=== PATIENT | female | born 1970 | race Asian ===

== ENCOUNTER 2020-09-05 10:24 | Emergency (ER) | payer BC ==
[~2020-09-05] VITALS: Ht 152.4 cm; Wt 47.6 kg
[~2020-09-05 10:24] MED LIST: MECLIZINE HCL25 MG ORAL; ZOFRAN4 M1 ORAL
[2020-09-05 10:45] VITALS: BP 139/88
--- NOTE | 2020-09-05 10:56 | NUR ---
ED Nurse Note: RN unable to obtain EKG earlier due to too many artifacts from patient's persistent cough. EKG obtained at [address] Green.
[2020-09-05] MEDS ORDERED: Morphine Sulfate 4mg/ml Inj (IV USE ONLY) IVP ONE (11:15)
[2020-09-05] MEDS ORDERED: Omnipaque-300 100ml vial INJ PRN (11:15)
--- NOTE | 2020-09-05 11:19 | NUR ---
ED Nurse Note: Patient walked in to ER from home c/o persistent painful cough, white phlegm with CP/abdominal pain, pointing LLQ x 3 weeks. Patient presented calm, AAO x4, VSS at this time. Per patient, she had recent hospitalization due to sepsis from UTI and pending drainage procedure due to ruptured cysts in kidneys.
[2020-09-05 13:13] LABS: APPEARANCE,URINE SLIGHTLY CLOUDY; BASOPHILS % (AUTO) 0.8 % (0.0-2.0); BILIRUBIN, URINE NEGATIVE (NEGATIVE); COLOR,URINE PALE YELLOW; EOSINOPHILS % (AUTO) 1.8 % (0.0-3.0); GLUCOSE, URINE (UA) NEGATIVE (NEGATIVE); HEMATOCRIT 35.2 % (37.0-47.0); KETONES,URINE NEGATIVE (NEGATIVE); LEUKOCYTE ESTERASE ,URINE 1+ (NEGATIVE); LYMPHOCYTES % (AUTO) 12.5 % (20.0-45.0); MEAN CORPUSCULAR VOLUME 97 FL (80-99); MONOCYTES % (AUTO) 9.6 % (1.0-10.0); NEUTROPHILS % (AUTO) 75.4 % (45.0-75.0); NITRITE,URINE NEGATIVE (NEGATIVE); PH,URINE 7 (4.5-8.0); PLATELET COUNT 339 K/UL (150-450); PROTEIN,URINE NEGATIVE (NEGATIVE); RED BLOOD COUNT 3.64 M/UL (4.20-5.40); RED CELL DISTRIBUTION WIDTH 12.9 % (11.6-14.8); UROBILINOGEN,URINE NORMAL MG/DL (0.0-1.0)
[2020-09-05 13:24] LABS: ANION GAP 7 mmol/L (5-15); BLOOD UREA NITROGEN 13 mg/dL (7-18); CALCIUM 8.9 MG/DL (8.5-10.1); CARBON DIOXIDE 28 MMOL/L (21-32); CHLORIDE 103 MMOL/L (98-107); CREATININE 0.7 MG/DL (0.55-1.30); POTASSIUM 3.9 MMOL/L (3.5-5.1); SODIUM 138 MMOL/L (136-145)
[2020-09-05 13:29] LABS: ALANINE AMINOTRANSFERASE 21 U/L (12-78); ALBUMIN 2.3 G/DL (3.4-5.0); ALBUMIN/GLOBULIN RATIO 0.5 (1.0-2.7); ALKALINE PHOSPHATASE 187 U/L (46-116); ASPARTATE AMINO TRANSFERASE 15 U/L (15-37); BILIRUBIN,TOTAL 0.3 MG/DL (0.2-1.0)
--- NOTE | 2020-09-05 14:47 | Emergency Room Report ---
History of Present Illness General Chief Complaint: Chest Pain Source: Patient (Burke Barkley MD) Present Illness HPI 49-year-old female presents to ED for evaluation. Complaining of chest pain and left flank pain. States that she was admitted over the holidays for "sepsis". States they found a cyst in her kidney with. Was supposed to have it drained but left AMA. Unable to facilitate this at this time. States she has been coughing persistently which is causing pain in her chest. Dull, 7 out of 10, nonradiating. States she has had persistent pain in her flank denies fevers or chills. Denies nausea or vomiting. No other aggravating relieving factors. Denies any other associated symptoms (Burke Barkley MD) Allergies: Coded Allergies: No Known Allergies (Unverified , 09/03/15) COVID-19 Screening Contact w/high risk pt: No Experienced COVID-19 symptoms?: Yes COVID-19 Testing performed [employer]: Yes COVID-19 Screening: Negative COVID-19 COVID-19 Testing Source: [employer] (Burke Barkley MD) Patient History Past Medical History: none Past Surgical History: none Pertinent Family History: none Social History: Denies: smoking, alcohol use, drug use Now: No Immunizations: UTD Reviewed Nursing Documentation: PMH: Agreed; PSxH: Agreed (Burke Barkley MD) Nursing Documentation-PMH Past Medical History: No History, Except For Hx Cardiac Problems: No - UTI, sepsis Hx Hypertension: No Hx Pacemaker: No Hx Asthma: No Hx COPD: No Hx Diabetes: No Hx Cancer: No Hx Gastrointestinal Problems: No - ruptured cyst in kidney Hx Dialysis: No History Of Psychiatric Problem: No Hx Neurological Problems: No Hx Cerebrovascular Accident: No Hx Seizures: No (Burke Barkley MD) Review of Systems All Other Systems: negative except mentioned in HPI (Burke Barkley MD) Physical Exam Vital Signs Date Time Temp Pulse Resp B/P (MAP) Pulse Ox O2 Delivery O2 Flow Rate FiO2 09/05/20 10:30 98.1 84 20 139/88 (105) 98 Room Air Sp02 EP Interpretation: reviewed, normal General Appearance: no apparent distress, alert, GCS 15, non-toxic Head: normocephalic, atraumatic Eyes: bilateral eye normal inspection, bilateral eye PERRL ENT: hearing grossly normal, normal pharynx, no angioedema, normal voice Neck: full range of motion, supple/symm/no masses Respiratory: lungs clear, normal breath sounds, speaking full sentences, other - reproducible chest wall pain Cardiovascular #1: regular rate, rhythm, no edema Cardiovascular #2: 2+ carotid (R), 2+ carotid (L), 2+ radial (R), 2+ radial (L), 2+ dorsalis pedis (R), 2+ dorsalis pedis (L) Gastrointestinal: normal bowel sounds, non tender, soft, non-distended, no guarding, no rebound Rectal: deferred Genitourinary: normal inspection, CVA tenderness (L) Musculoskeletal: back normal, normal range of motion, gait/station normal, non- tender Neurologic: alert, motor strength/tone normal, oriented x3, sensory intact, responsive, speech normal Psychiatric: judgement/insight normal, memory normal, mood/affect normal, no suicidal/homicidal ideation Reflexes: 3+ bicep (R), 3+ bicep (L), 3+ tricep (R), 3+ tricep (L), 3+ knee (R), 3+ knee (L) Skin: no rash Lymphatic: no adenopathy (Burke Barkley MD) Medical Decision Making Diagnostic Impression: Primary Impression: Renal cyst Additional Impression: Viral URI Laboratory Tests Test 09/05/20 12:03 White Blood Count 8.0 K/UL (4.8-10.8) Red Blood Count 3.64 M/UL (4.20-5.40) L Hemoglobin 11.0 G/DL (12.0-16.0) L Hematocrit 35.2 % (37.0-47.0) L Mean Corpuscular Volume 97 FL (80-99) Mean Corpuscular Hemoglobin 30.3 PG (27.0-31.0) Mean Corpuscular Hemoglobin Concent 31.3 G/DL (32.0-36.0) L Red Cell Distribution Width 12.9 % (11.6-14.8) Platelet Count 339 K/UL (150-450) Mean Platelet Volume 6.1 FL (6.5-10.1) L Neutrophils (%) (Auto) 75.4 % (45.0-75.0) H Lymphocytes (%) (Auto) 12.5 % (20.0-45.0) L Monocytes (%) (Auto) 9.6 % (1.0-10.0) Eosinophils (%) (Auto) 1.8 % (0.0-3.0) Basophils (%) (Auto) 0.8 % (0.0-2.0) Urine Color Pale yellow Urine Appearance Slightly cloudy Urine pH 7 (4.5-8.0) Urine Specific [place] 1.010 (1.005-1.035) Urine Protein Negative (NEGATIVE) Urine Glucose (UA) Negative (NEGATIVE) Urine Ketones Negative (NEGATIVE) Urine Blood Negative (NEGATIVE) Urine Nitrite Negative (NEGATIVE) Urine Bilirubin Negative (NEGATIVE) Urine Urobilinogen Normal MG/DL (0.0-1.0) Urine Leukocyte Esterase 1+ (NEGATIVE) H Urine RBC 0-2 /HPF (0 - 2) Urine WBC 0-2 /HPF (0 - 2) Urine Squamous Epithelial Cells Few /LPF (NONE/OCC) Urine Bacteria Occasional /HPF (NONE) Sodium Level 138 MMOL/L (136-145) Potassium Level 3.9 MMOL/L (3.5-5.1) Chloride Level 103 MMOL/L (98-107) Carbon Dioxide Level 28 MMOL/L (21-32) Anion Gap 7 mmol/L (5-15) Blood Urea Nitrogen 13 mg/dL (7-18) Creatinine 0.7 MG/DL (0.55-1.30) Estimat Glomerular Filtration Rate > 60 mL/min (>60) Glucose Level 96 MG/DL (74-106) Calcium Level 8.9 MG/DL (8.5-10.1) Total Bilirubin 0.3 MG/DL (0.2-1.0) Aspartate Amino Transf (AST/SGOT) 15 U/L (15-37) Alanine Aminotransferase (ALT/SGPT) 21 U/L (12-78) Alkaline Phosphatase 187 U/L (46-116) H Troponin I 0.002 ng/mL (0.000-0.056) Total Protein 7.4 G/DL (6.4-8.2) Albumin 2.3 G/DL (3.4-5.0) L Globulin 5.1 g/dL Albumin/Globulin Ratio 0.5 (1.0-2.7) L Lipase 286 U/L (73-393) (Burke Barkley MD) ER Course Patient signed out to me pending CT scan. CT scan demonstrated complex cyst versus neoplasm versus abscess. As the cyst has been present over the past month. Patient is afebrile with no leukocytosis we suspect this is more likely a chronic cyst. Imaging findings and case discussed with urology, Dr. Emanuel, who will follow up with patient in office. Patient otherwise nontoxic, no acute distress, stable for discharge home, regarding patient's cough chest x-ray did not show any lobar infiltrate but we decided to start her on a course of antibiotics, and pain control provided. Stable for discharge. (Cassius Wylie M.D.) EKG Diagnostic Results Troponin ordered: Yes Rate: normal Rhythm: NSR ST Segments: no acute changes ASA given to the pt in ED: No (Burke Barkley MD) Rhythm Strip Diag. Results EP Interpretation: yes Rhythm: NSR, no PVC's, no ectopy (Burke Barkley MD) Chest X-Ray Diagnostic Results Chest X-Ray Diagnostic Results : Chest X-Ray Ordered: Yes # of Views/Limited/Complete: 1 View Indication: Chest Pain EP Interpretation: Yes Interpretation: no pneumothorax, other - consolidation Impression: Other - ?PNA Electronically Signed by: Electronically signed by Burke Barkley MD (Burke Barkley MD) CT/MRI/US Diagnostic Results CT/MRI/US Diagnostic Results : Imaging Test Ordered: CT abdomen pelvis Impression Impression: By 5 cm thick walled cystic mass coming off the lower pole of the left kidney. This could represent a cystic neoplasm, a complicated cyst, or a renal abscess. Infiltration of the adjacent fat is noted. Infiltrating material is somewhat high in attenuation, could represent blood if there is been recent intervention or blood from rupture. However, this could also indicate inflammation if this is an infectious process. Hepatic and renal cysts. Bilateral dependent pulmonary atelectatic changes. (Cassius Wylie M.D.) Last Vital Signs Date Time Temp Pulse Resp B/P (MAP) Pulse Ox O2 Delivery O2 Flow Rate FiO2 09/05/20 12:39 98.1 09/05/20 10:45 84 20 Room Air 09/05/20 10:45 139/88 98 Status: improved (Burke Barkley MD) Disposition: HOME, SELF-CARE Condition: Improved Scripts Hydrocodone Bit/Acetaminophen 5-325* (NORCO 5-325 TABLET*) 1 Each Tablet 1 TAB ORAL Q6H PRN for FOR PAIN, #10 TAB 0 Refills Prov: Cassius Wylie M.D. 09/05/20 Azithromycin* (ZITHROMAX*) 250 Mg Tablet 250 MG ORAL DAILY, #6 TAB 0 Refills Take two tables once daily for 1 day, then one tablet once daily for 4 days. Prov: Cassius Wylie M.D. 09/05/20 Referrals: NON PHYSICIAN (PCP) Burke Barkley MD Sep 05, 2020 14:47 Cassius Wylie M.D. Sep 05, 2020 16:40
--- NOTE | 2020-09-05 15:38 | Diagnostic Imaging Report ---
Indication: Left flank pain Technique: Spiral acquisitions obtained through the abdomen and pelvis pre- and post-IV contrast demonstration. Multiplanar reconstructions were generated. Total dose length product 623 mGycm. CTDIvol(s) 3, 10, 90, 3, 3, 3 mGy. Dose reduction achieved using automated exposure control Comparison: none Findings: A large 7.5 cm thick-walled cystic mass comes off of the posterior lower pole of the left kidney. There is considerable infiltration of the perinephric fat with fairly dense material. This also results in distortion of the renal pelvic anatomy. A simple cyst is seen in the interpolar region of the left kidney as well as small subcentimeter low attenuation lesions in both kidneys which are too small to characterize. The bladder is unremarkable. The ureters are unremarkable. No renal or ureteral calculi, hydronephrosis, and hydroureter. The liver demonstrates multiple cysts as well as subcentimeter low attenuation lesions which are too small to characterize, most likely benign simple cyst. The gallbladder, bile ducts, pancreas, spleen, adrenals are unremarkable. The uterus and adnexal structures are unremarkable. No pelvic mass or adenopathy. Lack of IV contrast limits assessment of the GI tract. The appendix is unremarkable. The small bowel is nondilated. No free or loculated intraperitoneal gas or fluid is evident. Included lung bases demonstrate posterior dependent atelectatic changes. The bones are unremarkable. Impression: By 5 cm thick walled cystic mass coming off the lower pole of the left kidney. This could represent a cystic neoplasm, a complicated cyst, or a renal abscess. Infiltration of the adjacent fat is noted. Infiltrating material is somewhat high in attenuation, could represent blood if there is been recent intervention or blood from rupture. However, this could also indicate inflammation if this is an infectious process. Hepatic and renal cysts. Bilateral dependent pulmonary atelectatic changes. The CT scanner at [facility] is accredited by the [employer] and the scans are performed using protocols designed to limit radiation exposure to as low as reasonably achievable to attain images of sufficient resolution adequate for diagnostic evaluation.
[2020-09-05] MEDS ORDERED: ZITHROMAX250 MG ORAL (16:33)
[2020-09-05] MEDS ORDERED: NORCO 5-325 TA1 EAC1 ORAL (16:33)
[2020-09-05] MEDS ORDERED: TESSALON PERLE100 M2 ORAL (16:45)
[2020-09-05 17:06] VITALS: BP 139/88
--- NOTE | 2020-09-05 17:07 | NUR ---
ER DISCHARGE NOTE: Patient is cleared to be discharged per ERMD, pt is aox4, on room air, with stable vital signs. pt was given dc and prescription instructions, pt was able to verbalize understanding, pt id band and iv site removed without complications. pt is able to ambulate with steady gait. pt took all belongings.
--- NOTE | 2020-09-05 18:30 | Diagnostic Imaging Report ---
Indication: Cough Technique: One view of the chest Comparison: none Findings: There is questionable mild interstitial prominence. No focal airspace consolidation. Normal heart size. Impression: Questionable mild interstitial prominence. Acuity indeterminate. Correlate with clinical findings
--- NOTE | 2020-09-06 16:01 | Cardiology Report ---
APPROVED REPORT EKG Measurement Heart [id number] <Conclusion> Normal sinus rhythm Normal ECG
== END 2020-09-05 17:07 | disposition home or self-care (01) ==
LOC: EMR 11:05
DX: N28.1 Cyst of kidney, acquired (principal); J06.9 Acute upper respiratory infection, unspecified
CPT/HCPCS: 36415; 71045; 74178; 80053; 81003; 83690; 84484; 85025; 93005; 96361; 96374; 99284; J2270; Q9965